=== PATIENT | male | born 1990 | race Caucasian/White ===

== ENCOUNTER 2019-04-02 02:25 | Emergency (ER) | payer OTHER, MEDICAID ==
[~2019-04-02] VITALS: Ht 188 cm; Wt 72.6 kg
[2019-04-02 02:29] VITALS: BP 129/65
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
--- NOTE | 2019-04-02 02:49 | NUR ---
DR ALEXANDRE EVALUATING PT AT BEDSIDE
[2019-04-02] MEDS ORDERED: MORPHINE SULFATE 4 MG/ML SYR IM ONE (02:55)
--- NOTE | 2019-04-02 03:08 | NUR ---
PHLEB AT BEDSIDE DRAWING BLOOD
--- NOTE | 2019-04-02 03:42 | NUR ---
BLOOD DRAWN USING PORTACATH USING STERILE TECHNIQUE. PT TOLERATED PROCEDURE. SPECIMEN SENT TO LAB AT THIS TIME.
[2019-04-02 04:14] LABS: HEMATOCRIT 22.6 % (36-52); HEMOGLOBIN 7.8 g/dL (12.0-18.0); MEAN CORPUSCULAR HEMOGLOBIN 32 pg (27-31); MEAN CORPUSCULAR HGB CONC 35 g/dL (33-37); MEAN CORPUSCULAR VOLUME 91.9 fL (80-94); PLATELET COUNT (AUTO) 430 K/uL (140-450); RED BLOOD CELL COUNT(AUTO) 2.46 MIL/uL (4.20-6.10); RED CELL DISTRIBUTION WIDTH 23.6 % (11.6-13.7); WHITE BLOOD COUNT (AUTO) 10.2 K/uL (4.8-10.8)
[2019-04-02 04:19] LABS: CORRECTED WHITE BLOOD COUNT 9.7 K/uL (4.5-11.0); EOSINOPHILS % (MANUAL) 4 % (0-4); LYMPHOCYTES % (MANUAL) 40 % (20-46); MONOCYTES % (MANUAL) 15 % (5-12)
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
--- NOTE | 2019-04-02 04:53 | NUR ---
ANIRUDHTY CAME TO ER. PT CONTINUES TO YELL AT STAFF AND SECURITY. WHILE YELLING AT [facility], HE STATES, "I WILL FUCK YOU UP BIG MAN." PT IS WALKING UPRIGHT WITH A STRONG STEADY GAIT. PT SPEAKS OVER STAFF SECURETY AND NURSES ATTEMPT TO CALMLY SPEAK TO THE PT. Addendum: 04/02/19 at 0558 by [facility] *Ammended; charted under wrong nurse* ANIRUDHTYRESE CAME TO ER. PT CONTINUES TO YELL AT STAFF AND SECURITY. WHILE YELLING AT [facility], HE STATES, "I WILL FUCK YOU UP BIG MAN." PT IS WALKING UPRIGHT WITH A STRONG STEADY GAIT. PT SPEAKS OVER STAFF SECURETY AND NURSES ATTEMPT TO CALMLY SPEAK TO THE PT.
[2019-04-02 05:05] VITALS: BP 121/77
--- NOTE | 2019-04-02 05:05 | NUR ---
PT DISCHARGED WITHOUT PAPERWORK. PT REFUSED TO SIGN D/C FORM. PT REFUSED TO LEAVE ED. SECURITY CALLED FOR ESCORT. PT EVENTUALY LEFT ED. PT REFUSED EDUCATION OF D/C DIAGNOSIS AND INSTRUCTIONS.
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
== END 2019-04-02 05:05 | disposition home or self-care (01) ==
LOC: MED 02:25
DX: D57.1 Sickle-cell disease without crisis (principal)
CPT/HCPCS: 36415; 85025; 96372; 99283; J2270